=== PATIENT | female | born 1980 ===

== ENCOUNTER 2018-10-12 12:22 | Outpatient (CLI) | payer OTHER ==
--- NOTE | 2018-10-12 13:34 | MRI ---
MRI Lower Ext Jt Rt WO Con History: [Right knee pain.] Comparison: None. Findings: Medial meniscus: Intact Lateral meniscus: Intact ACL PCL MCL and LCL are all intact. Extensor mechanism: Quadriceps tendon and patella and patellar tendon are intact. Mild trochlear dysp lasia with flattening of the trochlear groove. 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 There is adjacent cartilage delamination and fraying. There is a chondral defect measuring 2 mm x 8 mm. Central osteophyte formation is present. Lateral compartment: Intact Soft tissues: There is synovitis of the posterior medial gutter. There is a large body within the sup rapatellar recess measuring 1.3 cm x 0.8 cm x 1 cm (transverse x AP x cc). Small joint effusion. Muscles: Muscle signal and bulk is normal. Impression: 1. 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 A central osteophyte formation as well as adjacent chondral delamination. There is a 2 x 8 mm full-thickness cartilage defect. 2. Large ossified body within the suprapatellar recess as described. 3. Synovitis along the posterior medial gutter. 4. 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 5. Early osteophyte formation of the patellofemoral compartment.
== END 2018-10-12 12:23 | disposition home or self-care (01) ==
LOC: BICMRI 12:22
PROVIDERS: ATTEND Family Medicine
DX: M25.561 Pain in right knee (principal); M65.861 Other synovitis and tenosynovitis, right lower leg